=== PATIENT | female | born 1955 | race Two or more races ===

== ENCOUNTER 2018-06-28 18:15 | Emergency (ER) | payer OTHER ==
[~2018-06-28] VITALS: Ht 162.6 cm; Wt 71.7 kg
[2018-06-28] MEDS ORDERED: NKM (18:24)
[2018-06-28 18:41] VITALS: BP 160/79
[2018-06-28 18:42] LABS: APPEARANCE,URINE SLIGHTLY CLOUDY; BILIRUBIN, URINE NEGATIVE (NEGATIVE); COLOR,URINE AMBER; GLUCOSE, URINE (UA) NEGATIVE (NEGATIVE); KETONES,URINE NEGATIVE (NEGATIVE); LEUKOCYTE ESTERASE ,URINE 3+ (NEGATIVE); NITRITE,URINE NEGATIVE (NEGATIVE); PH,URINE 7 (4.5-8.0); PROTEIN,URINE 2+ (NEGATIVE); UROBILINOGEN,URINE 4 MG/DL (0.0-1.0)
--- NOTE | 2018-06-28 18:51 | Emergency Room Report ---
History of Present Illness General Chief Complaint: Female Urogenital Problems Source: Patient Present Illness HPI patient is a 62-year-old female with no significant past medical history year complaining of 2 days of urinary frequency and dysuria. Denies hematuria complains of suprapubic pain but denies flank pain, fevers/chills, nausea vomiting patient denies SOB chest pain palpitations and all other associated symptoms has not taken any pain medication Allergies: Coded Allergies: No Known Allergies (Unverified , 06/28/18) Patient History Past Medical History: see triage record Past Surgical History: none Now: No Immunizations: UTD Reviewed Nursing Documentation: PMH: Agreed; PSxH: Agreed Nursing Documentation-PMH Past Medical History: No History, Except For Hx Cardiac Problems: Yes - cholesterol Physical Exam Vital Signs Date Time Temp Pulse Resp B/P (MAP) Pulse Ox O2 Delivery O2 Flow Rate FiO2 06/28/18 18:19 98.2 94 18 167/90 97 Room Air 98.2 Medical Decision Making PA Attestation diagnosis and treatment plans are reviewed and discussed with my supervising physician Diagnostic Impression: Primary Impression: UTI (urinary tract infection) ER Course patient is a 62-year-old female with no significant past medical history year complaining of 2 days of urinary frequency and dysuria. Denies hematuria complains of suprapubic pain but denies flank pain, fevers/chills, nausea vomiting patient denies SOB chest pain palpitations and all other associated symptoms has not taken any pain medication Ddx considered but are not limited to UTI, hematuria Vital signs: are WNL, pt. is afebrile H&PE are most consistent with UTI ORDERS: uA, Macrobid, Pyridium ED INTERVENTIONS: None required at this time DISCHARGE: At this time pt. is stable for d/c to home. Will provide printed patient care instructions, and any necessary prescriptions. Care plan and follow up instructions have been discussed with the patient prior to discharge. increase oral hydration, follow with a primary care provider if hematuria continue UA: pos leuk and nitrite, 1+ blood Last Vital Signs Date Time Temp Pulse Resp B/P (MAP) Pulse Ox O2 Delivery O2 Flow Rate FiO2 06/28/18 18:41 98.3 84 18 160/79 97 Room Air 98.3 Disposition: HOME, SELF-CARE Condition: Stable Scripts Phenazopyridine Hcl* (PYRIDIUM*) 100 Mg Tablet 100 MG ORAL THREE TIMES A DAY for 2 Days, #6 TAB Prov: Kalin Galeano 06/28/18 Nitrofurantoin Monohyd/M-Cryst* (MACROBID 100 MG*) 100 Mg Capsule 100 MG ORAL EVERY 12 HOURS for 7 Days, #14 CAP Prov: Kalin Galeano 06/28/18 Patient Instructions: Urinary Tract Infection Additional Instructions: that medication as director, increase oral hydration, follow with the primary care provider if blood and urine continues. if fever/chills return to ED Kalin Galeano Jun 28, 2018 18:51
[2018-06-28] MEDS ORDERED: PHENAZOPYRIDIN100 MG ORAL (18:52)
[2018-06-28] MEDS ORDERED: NITROFURANTOIN100 M2 ORAL (18:52)
[2018-06-28 19:08] VITALS: BP 160/79
== END 2018-06-28 19:08 | disposition home or self-care (01) ==
LOC: EMR 18:43
DX: N39.0 Urinary tract infection, site not specified (principal); R35.0 Frequency of micturition; R30.0 Dysuria
CPT/HCPCS: 81001; 87086; 87181; 99283

== ENCOUNTER → 2019-01-06 | Emergency (ER) | payer OTHER ==
[~2019-01-06] VITALS: Ht 162.6 cm; Wt 72.6 kg
[~2019-01-06] MED LIST: Ketorolac 30mg Inj IM ONE; Ketorolac 30mg Inj IV ONE; Methocarbamol 500mg tab ORAL ONE; NITROFURANTOIN100 M2 ORAL; NKM; PHENAZOPYRIDIN100 MG ORAL; ROBAXIN-750750 MG PO
--- NOTE | 2019-01-06 18:20 | NUR ---
ED Nurse Note: Pt came into the ER w/ complaints of right arm pain 10/10 Non radiating. Pt stated that pain staretd 5 months ago, but it got worse 3 days ago. Pt denies injury. A + O x4. Ambulatory. Skin warm to touch.
[2019-01-06 18:24] VITALS: BP 140/75
--- NOTE | 2019-01-06 18:44 | Emergency Room Report ---
History of Present Illness General Chief Complaint: Upper Extremity Injury Source: Patient, Medical Record Present Illness HPI 53-year-old female presenting with right shoulder pain, says it's been that way for 5 months, the pain comes and goes. Worse with movement. She takes Tylenol at home without any issues. She says that she may have fallen female months ago. She is able to use her R arm even if it hurts. No numbness or tingling. No neck pain Allergies: Coded Allergies: PENICILLINS (Verified Allergy, Unknown, 01/06/19) Patient History Past Medical History: see triage record Past Surgical History: none Pertinent Family History: none Reviewed Nursing Documentation: PMH: Agreed; PSxH: Agreed Nursing Documentation-PMH Past Medical History: No History, Except For Hx Cardiac Problems: Yes - cholesterol Review of Systems All Other Systems: negative except mentioned in HPI Physical Exam Vital Signs Date Time Temp Pulse Resp B/P (MAP) Pulse Ox O2 Delivery O2 Flow Rate FiO2 01/06/19 18:15 97.9 82 18 148/72 97 Room Air Sp02 EP Interpretation: reviewed, normal General Appearance: normal inspection, well appearing, no apparent distress, alert, GCS 15, non-toxic Head: normocephalic, atraumatic Eyes: bilateral eye normal inspection, bilateral eye PERRL, bilateral eye EOMI ENT: normal ENT inspection, normal pharynx, normal voice, moist mucus membranes Neck: normal inspection, full range of motion, supple, no bony tend Respiratory: normal inspection, lungs clear, normal breath sounds, no respiratory distress, no retraction, no wheezing, speaking full sentences, chest symmetrical Cardiovascular #1: normal inspection, regular rate, rhythm, no edema, normal capillary refill Cardiovascular #2: 2+ radial (R), 2+ radial (L) Gastrointestinal: normal inspection, non tender, soft, non-distended, no guarding Musculoskeletal: other - R shoulder tenderness along deltoid region, FROM, no erythema, no effusion, full active rom Neurologic: normal inspection, alert, oriented x3, responsive, motor strength/ tone normal, sensory intact, normal gait, speech normal Psychiatric: normal inspection, judgement/insight normal, memory normal Skin: normal inspection, normal color, no rash, warm/dry, well hydrated, normal turgor Medical Decision Making ER Course 5 months of right shoulder pain DDX: Sprain/strain vs. fracture versus ligamentous injury Plan: Pain control XR ER course: Patient reports improvement of pain with medications Disposition: Patient is to be discharged home with a prescription of Robaxin Strict precautions discussed with patient on when to return to the emergency room including increased redness or swelling joints, increased pain/swelling of extremity, fever or chills, which could indicate severe illness. Patient is to follow up with their primary care doctor within 5 days. Patient also instructed to follow up with an orthopedic doctor if continuing to have mild/moderate pain as he may need further outpatient imaging. Patient agrees with plan. Please note that this Emergency Department Report was dictated using [employer] captain technology software, occasionally this can lead to erroneous entry secondary to interpretation by the dictation equipment. Xray ordered:R shoulder 3 view Indication: Pain EP Interpretation: Yes Interpretation: No dislocation, no soft tissue swelling, no fractures Impression: No acute disease Electronically signed by Clare Chong MD Last Vital Signs Date Time Temp Pulse Resp B/P (MAP) Pulse Ox O2 Delivery O2 Flow Rate FiO2 01/06/19 18:24 98.0 66 20 140/75 98 Room Air Disposition: HOME, SELF-CARE Condition: Stable Scripts Methocarbamol* (ROBAXIN-750*) 750 Mg Tablet 750 MG PO QID, #28 TAB 0 Refills Prov: Clare Chong M.D. 01/06/19 Clare Chong M.D. Jan 06, 2019 18:44
--- NOTE | 2019-01-06 18:47 | NUR ---
ED Nurse Note: HOLLIE gave verbal orders to change route of toradol from IV to IM. Carried out orders.
--- NOTE | 2019-01-06 19:02 | NUR ---
HAND-OFF: Report given to GERRY Monique.
--- NOTE | 2019-01-07 11:26 | Diagnostic Imaging Report ---
Indication: Right shoulder pain Findings: 3 views of the right shoulder were obtained. No acute fractures, malalignment, erosions or periostitis are identified. Soft tissues are unremarkable. Impression: Negative for acute injury
== END | disposition home or self-care (01) ==
LOC: EMR 18:25
DX: M25.511 Pain in right shoulder (principal); Z88.0 Allergy status to penicillin
CPT/HCPCS: 73030; 96372; 99283; J1885